=== PATIENT | male | born 1985 | race Caucasian/White ===

== ENCOUNTER 2024-05-02 00:21 | Outpatient (CLI) | payer OTHER | END 2024-05-02 23:59 | disposition critical access hospital (66) | LOC: EMS 00:21 | DX: S61.011A Laceration without foreign body of right thumb without damage to nail, initial encounter (principal); W26.9XXA Contact with unspecified sharp object(s), initial encounter; Y93.G1 Activity, food preparation and clean up; Y92.000 Kitchen of unspecified non-institutional (private) residence as the place of occurrence of the external cause | CPT/HCPCS: A0425; A0429 ==

== ENCOUNTER 2024-05-02 00:36 | Emergency (ER) | payer OTHER ==
--- NOTE | 2024-05-02 03:43 | ED Physician Documentation ---
PD HPI UPPER EXT INJURY - Stated complaint Stated Complaint: THUMB LAC - Chief complaint Chief Complaint: Trauma Ext - History obtained from History obtained from: Patient - Additonal information Additional information: HPI from patient. Patient sustained right thumb laceration tonight while doing dishes and cleaning the knife. Patient is right hand dominant. Denies weakness, numbness. He is UTD on tetanus immunization. Review of Systems Skin: reports: Laceration (s) Neurologic: denies: Focal weakness, Numbness PD PAST MEDICAL HISTORY - Past Medical History Past Medical History: No - Past Surgical History Past Surgical History: No - Allergies Allergies/Adverse Reactions: Allergies Allergy/AdvReac Type Severity Reaction Status Date / Time No Known Drug Allergies Allergy Verified 05/02/24 00:45 - Social History Does the pt smoke?: No Smoking Status: Never smoker - Immunizations Immunizations are current?: Yes PD ED PE NORMAL - Vitals Vital signs reviewed: Yes - General General: Alert and oriented X 3, No acute distress, Well developed/nourished - Neuro Neuro: No motor deficit (FROM and strength extension, flexion, abduction, adduction), No sensory deficit (LTS intact right thumb including tip) PD ED PE EXPANDED - Extremities Extremities: Motor intact, Sensory intact, Vascular intact, Tendon intact MOISES UE/Hands Visual: 1 - laceration (3 cm length laceration, exposed adipose tissue but no bone, neurovascular, tendon exposed) Results - Vitals Vitals: Vital Signs - 24 hr 05/02/24 05/02/24 00:43 04:51 Temperature 36.0 C L Heart Rate 78 74 Respiratory 16 16 Rate Blood Pressure 135/97 H 133/94 H O2 Saturation 97 98 Oxygen O2 Source Room air Procedures - Laceration (location) Finger right Dorsal Length in cm: 3 Wound type: Linear, Into subcut fat, Clean Neurovascular status: Sensory intact, Motor intact, Vascular intact Tendon involvement: Tendon intact Anesthesia: Lidocaine 2% Wound preparation: Hibiclens, Irrigated copiously NS, Wound explored, To the base Skin layer closure: Running, Size #-0 - enter number (4-0) Other: Patient tolerated well, No complications, Neurovascular intact, Dressing applied, Tetanus UTD PD Medical Decision Making - ED course Complexity details: considered differential, d/w patient ED course: thumb laceration repaired with 4-0 vicryl running suture. NVI both before and after procedure. Return precautions reviewed, advised to follow up with PCP 7-10 days for suture removal. Departure - Departure Disposition: 01 Home, Self Care Clinical Impression: Laceration of thumb Condition: Good Instructions: ED Laceration Ext Sutr Stap Tape Comments: Contact your primary care provider this morning to arrange for appointment in 7- 10 days for removal of the sutures/stitches Discharge Date/Time: 05/02/24 04:51
[2024-05-02] MEDS: LIDOCAINE-MPF 2% 5 ML VIAL SUBQ STA (04:03)
[2024-05-02] MEDS: LIDOCAINE 2% 10 ML MDV SUBQ ONE (04:04)
[2024-05-02] MEDS: BACITRACIN ZINC OINT 1 PACKET TOP STA (04:49)
[2024-05-02 05:00] VITALS: BP 133/94; O2SAT 98
== END 2024-05-02 04:51 | disposition home or self-care (01) ==
LOC: ED 00:36
DX: S61.011A Laceration without foreign body of right thumb without damage to nail, initial encounter (principal); W26.0XXA Contact with knife, initial encounter; Y93.G1 Activity, food preparation and clean up
CPT/HCPCS: 12002; 99283